=== PATIENT | female | born 1990 | race Caucasian/White ===

== ENCOUNTER 2017-08-06 19:45 | Emergency (ER) | payer OTHER ==
[~2017-08-06] VITALS: Ht 157.5 cm; Wt 59.0 kg
== END 2017-08-06 23:01 | disposition home or self-care (01) ==
LOC: ER 19:45
DX: I95.9 Hypotension, unspecified (principal)

== ENCOUNTER 2017-10-20 19:04 | Emergency (ER) | payer OTHER ==
[~2017-10-20] VITALS: Ht 157.5 cm; Wt 62.1 kg
[2017-10-20] MEDS ORDERED: PRENATAL TABLE1 EAC2 PO (19:16)
[2017-10-20] MEDS ORDERED: NEXIUM 24HR20 M1 PO (19:16)
[2017-10-20] MEDS ORDERED: PEPTO-BISM262 MG/15 PO (19:17)
[2017-10-21] MEDS ORDERED: CEPHALEXIN500 MG PO (02:06)
[2017-10-21] MEDS ORDERED: CARAFATE1 GM/10 ML PO (02:06)
== END 2017-10-21 02:25 | disposition home or self-care (01) ==
LOC: ER 19:04
DX: K29.70 Gastritis, unspecified, without bleeding (principal); N39.0 Urinary tract infection, site not specified

== ENCOUNTER 2018-03-06 10:30 | Inpatient (IN) | payer OTHER ==
[~2018-03-06] VITALS: Ht 157.5 cm; Wt 66.2 kg
[~2018-03-06 10:30] MED LIST: CARAFATE1 GM/10 ML PO; CEPHALEXIN500 MG PO; NEXIUM 24HR20 M1 PO; PEPTO-BISM262 MG/15 PO; PRENATAL TABLE1 EAC2 PO; PROMETHAZINE W118 ML PO
[2018-03-11] MEDS ORDERED: VALTREX1000 MG PO (02:37)
[2018-03-11] MEDS ORDERED: PNEU16DI2 (02:37)
== END 2018-03-13 15:43 | disposition home or self-care (01) | DRG 807 ==
LOC: LDR 10:30 → OB/GYN 03-11 02:08
PROC: 10E0XZZ Delivery of Products of Conception, External Approach (ICD-10-PCS; principal; 2018-03-11)
PROC: 0W8NXZZ Division of Female Perineum, External Approach (ICD-10-PCS; 2018-03-11)
PROC: 4A033R1 Measurement of Arterial Saturation, Peripheral, Percutaneous Approach (ICD-10-PCS; 2018-03-11)
PROC: 4A1HXCZ Monitoring of Products of Conception, Cardiac Rate, External Approach (ICD-10-PCS; 2018-03-11)
DX: O80 Encounter for full-term uncomplicated delivery (principal); Z37.0 Single live birth; Z3A.38 38 weeks gestation of pregnancy

== ENCOUNTER 2018-08-09 18:15 | Emergency (ER) | payer OTHER ==
[~2018-08-09] VITALS: Ht 157.5 cm; Wt 58.1 kg
[~2018-08-09 18:15] MED LIST changes: +PNEU16DI2; +VALTREX1000 MG PO
== END 2018-08-09 21:16 | disposition home or self-care (01) ==
LOC: ER 18:15
DX: B34.9 Viral infection, unspecified (principal); R50.9 Fever, unspecified

== ENCOUNTER 2019-02-28 18:22 | Emergency (ER) | payer OTHER ==
[~2019-02-28] VITALS: Ht 157.5 cm; Wt 59.0 kg
[2019-02-28] MEDS ORDERED: PANADOL EXTRA500 MG (19:10)
== END 2019-02-28 22:07 | disposition home or self-care (01) ==
LOC: ER 18:22 → EMR PED 18:22 → ER 19:28
DX: J35.01 Chronic tonsillitis (principal)

== ENCOUNTER 2019-03-03 17:58 | Emergency (ER) | payer OTHER ==
[~2019-03-03] VITALS: Ht 157.5 cm; Wt 64.9 kg
[~2019-03-03 17:58] MED LIST changes: +PANADOL EXTRA500 MG
[2019-03-03] MEDS ORDERED: KETOROLAC PO (18:28)
[2019-03-03] MEDS ORDERED: AMOX/K CLAV PO (18:29)
[2019-03-03] MEDS ORDERED: AMOX1TAB5 (18:30)
== END 2019-03-03 23:52 | disposition home or self-care (01) ==
LOC: ER 17:58
DX: J02.0 Streptococcal pharyngitis (principal)

== ENCOUNTER 2020-10-13 13:47 | Emergency (ER) | payer OTHER ==
[~2020-10-13] VITALS: Ht 157.5 cm; Wt 64.4 kg
[~2020-10-13 13:47] MED LIST changes: +AMOX/K CLAV PO; +AMOX1TAB5; +KETOROLAC PO
== END 2020-10-13 18:51 | disposition home or self-care (01) ==
LOC: ER 13:47
DX: O21.0 Mild hyperemesis gravidarum (principal); Z34.02 Encounter for supervision of normal first pregnancy, second trimester

== ENCOUNTER 2021-02-03 09:13 | Inpatient (IN) | payer OTHER ==
[~2021-02-03] VITALS: Ht 157.5 cm; Wt 68.9 kg
[2021-02-03] MEDS ORDERED: ASA-BUTALB-CAF1 EACH PO (09:20)
[2021-02-03] MEDS ORDERED: VALTREX1000 MG PO (09:21)
[2021-02-03] MEDS ORDERED: PRENATABS RX T1 EACH PO (09:21)
== END 2021-02-05 14:35 | disposition home or self-care (01) | DRG 807 ==
LOC: LDR 09:13 → OB/GYN 16:29
PROVIDERS: ADMIT Specialist; ATTEND Specialist
PROC: 10E0XZZ Delivery of Products of Conception, External Approach (ICD-10-PCS; principal; 2021-02-03)
PROC: 0W8NXZZ Division of Female Perineum, External Approach (ICD-10-PCS; 2021-02-03)
PROC: 4A1HXFZ Monitoring of Products of Conception, Cardiac Rhythm, External Approach (ICD-10-PCS; 2021-02-03)
DX: O24.429 Gestational diabetes mellitus in childbirth, unspecified control (principal); Z37.0 Single live birth; Z30.2 Encounter for sterilization; Z3A.38 38 weeks gestation of pregnancy; Z20.822 Contact with and (suspected) exposure to COVID-19

== ENCOUNTER 2021-04-09 09:59 | Day surgery (SDC) | payer OTHER ==
[~2021-04-09 09:59] MED LIST changes: +ASA-BUTALB-CAF1 EACH PO; +PRENATABS RX T1 EACH PO
== END 2021-04-10 00:25 | disposition home or self-care (01) ==
LOC: CIR.AMB 09:59
PROVIDERS: ATTEND Specialist
DX: Z30.2 Encounter for sterilization (principal); Z20.822 Contact with and (suspected) exposure to COVID-19